=== PATIENT | male | born 1950 | race Hispanic/Latino ===

== ENCOUNTER → 2017-12-07 | Outpatient (CLI) | payer OTHER ==
[~2017-12-07] MED LIST: PANT40TA25 PO; PROP10TA10 PO
== END | disposition home or self-care (01) ==
LOC: RAH 07:40
PROVIDERS: ATTEND Internal Medicine Gastroenterology
DX: K74.60 Unspecified cirrhosis of liver (principal)
CPT/HCPCS: 76700

== ENCOUNTER → 2018-04-29 | Outpatient (CLI) | payer OTHER | END | disposition home or self-care (01) | LOC: RAH 08:03 | PROVIDERS: ATTEND Internal Medicine Gastroenterology | DX: K80.20 Calculus of gallbladder without cholecystitis without obstruction (principal); K74.60 Unspecified cirrhosis of liver | CPT/HCPCS: 76700 ==

== ENCOUNTER → 2018-09-06 | Outpatient (CLI) | payer OTHER | END | disposition home or self-care (01) | LOC: RAH 09:05 | PROVIDERS: ATTEND Internal Medicine Gastroenterology | DX: K76.9 Liver disease, unspecified (principal); R16.1 Splenomegaly, not elsewhere classified; K74.60 Unspecified cirrhosis of liver | CPT/HCPCS: 76700 ==

== ENCOUNTER 2018-11-08 06:50 | Day surgery (SDC) | payer OTHER ==
[~2018-11-08] VITALS: Ht 170.2 cm; Wt 90.1 kg
[2018-11-08 07:13] VITALS: BP 164/71
[2018-11-08] MEDS ORDERED: SODIUM CHLORIDE 0.9% 1000ML 1,000 ML IV ONE (07:18)
[2018-11-08 07:29] LABS: BASOPHILS % (AUTO) 2.1 % (0.0-5.0); EOSINOPHILS % (AUTO) 5.4 % (0.0-8.0); HEMATOCRIT 40.2 % (42-54); LYMPHOCYTES % (AUTO) 22.9 % (21.0-51.0); MEAN CORPUSCULAR HEMOGLOBIN 30.9 pg (27.0-33.0); MEAN CORPUSCULAR HGB CONC 34.3 g/dL (32.0-36.0); MEAN CORPUSCULAR VOLUME 89.9 fL (79-99); MONOCYTES % (AUTO) 9.7 % (3.0-13.0); NEUTROPHILS % (AUTO) 59.9 % (40.0-77.0); PLATELET COUNT (AUTO) 52 K/uL (130-400); RED BLOOD CELL COUNT(AUTO) 4.47 MIL/uL (4.50-6.20); WHITE BLOOD COUNT (AUTO) 4.6 K/uL (4.8-10.8)
[2018-11-08 07:41] LABS: CREATININE 0.8 mg/dL (0.5-1.5)
[2018-11-08 07:44] LABS: INR 1.11 (0.85-1.15); PARTIAL THROMBOPLASTIN TIME 29.6 SEC (26.3-35.5); PROTHROMBIN TIME 11.6 SEC (9.6-11.6)
[2018-11-08 07:47] LABS: ALBUMIN 3.6 g/dL (3.5-5.0); BILIRUBIN,TOTAL 1.8 mg/dL (0.2-1.0); TOTAL PROTEIN, SERUM 7.1 g/dL (6.0-8.3)
--- NOTE | 2018-11-08 10:13 | NUR ---
PROCEDURE PT TAKEN TO IR FOR SCHEDULED LIVER BIOPSY
--- NOTE | 2018-11-08 10:45 | NUR ---
PROCEDURE PATIENT SCHEDULED FOR LIVER BIOPSY. PATIENT IS A MOSQUE WITH A PLATELET COUNT 52. ABNORMAL LAB REPORTED TO TO DR Agus DE LA TORRE. PATIENT WAS BROUGHT TO DEPARTMENT AND SCANNED BY U/S WITH DR Agus DE LA TORRE PRESENT. DR DE LA TORRE EXPLAINED TO RISKS OF BLEEDING WIHT A PLATELET COUNT OF 52. DR Agus DE LA TORRE GAVE THE PATIENT THE OPTION TO GO AHEAD WITH THE BIOPSY WITH A HIGH RISK OF BLEEDING OR REPEAT MRI IN TWO MONTHS AND SEE IF THE LESION GROWS. THE PATIENT STATED HE WILL WAIT UNTIL AFTER THE MRI IS PERFORMED AND BASE THE BIOPSY ON THE NEW REPORT. PATIENT TRANSPORTED TO [facility] PATIENTAND REPORT GIVEN TO Savanah EARL RN
--- NOTE | 2018-11-08 11:00 | NUR ---
POST DR. JAQUEZ SPOKE TO PATIENT ABOUT HIGH RISK PROCEDURE DUE TO HIS LOW PLT LEVEL , PATIENT JEHOVA WITNESS. PATIENT DECIDED TO CANCEL PROCEDURE . PATIENT RETURN FROM IR .
--- NOTE | 2018-11-08 11:10 | NUR ---
DC PT DISCHARGE HOME WITH SPOUSE, NO DISTRESS NOTED.
== END 2018-11-08 11:10 | disposition home or self-care (01) ==
LOC: DAH 06:50 → EDSTATUS 08:00 → DAH 11:10
PROVIDERS: ATTEND Internal Medicine Gastroenterology
DX: R93.2 Abnormal findings on diagnostic imaging of liver and biliary tract (principal); Z53.8 Procedure and treatment not carried out for other reasons; K74.60 Unspecified cirrhosis of liver; E78.5 Hyperlipidemia, unspecified; I10 Essential (primary) hypertension; E11.9 Type 2 diabetes mellitus without complications; K21.9 Gastro-esophageal reflux disease without esophagitis; Z79.899 Other long term (current) drug therapy; Z86.010 Personal history of colon polyps; Z79.84 Long term (current) use of oral hypoglycemic drugs; Z98.890 Other specified postprocedural states
CPT/HCPCS: 36415; 76705; 80053; 82948; 85025; 85610; 85730; J7030

== ENCOUNTER → 2019-03-29 | Outpatient (CLI) | payer OTHER | END | disposition home or self-care (01) | LOC: RAH 09:23 | PROVIDERS: ATTEND Internal Medicine Medical Oncology | DX: K76.9 Liver disease, unspecified (principal); D69.6 Thrombocytopenia, unspecified | CPT/HCPCS: 76705 ==

== ENCOUNTER → 2021-07-25 | Outpatient (CLI) | payer OTHER ==
[~2021-07-25] MED LIST changes: -PANT40TA25 PO; +PANT40TA54 PO
== END | disposition home or self-care (01) ==
LOC: RAH 08:00
PROVIDERS: ATTEND Internal Medicine Gastroenterology
DX: K70.30 Alcoholic cirrhosis of liver without ascites (principal); K76.89 Other specified diseases of liver; N20.0 Calculus of kidney; R93.2 Abnormal findings on diagnostic imaging of liver and biliary tract; R16.1 Splenomegaly, not elsewhere classified
CPT/HCPCS: 76700; 93975

== ENCOUNTER → 2021-12-03 | Outpatient (CLI) | payer OTHER ==
[~2021-12-03] MED LIST changes: +IOHEXOL 350 MG/ML 100ML INFUS..BTL IV ONE
== END | disposition home or self-care (01) ==
LOC: RAH 08:07
PROVIDERS: ATTEND Internal Medicine Gastroenterology
DX: K57.90 Diverticulosis of intestine, part unspecified, without perforation or abscess without bleeding (principal); K70.30 Alcoholic cirrhosis of liver without ascites; R77.2 Abnormality of alphafetoprotein; M47.815 Spondylosis without myelopathy or radiculopathy, thoracolumbar region
CPT/HCPCS: 74170; Q9967

== ENCOUNTER → 2023-03-19 | Outpatient (CLI) | payer OTHER ==
[~2023-03-19] MED LIST changes: +GADOTERATE MEGLUMINE 10 MMOL/20 ML VIAL IV ONE; -IOHEXOL 350 MG/ML 100ML INFUS..BTL IV ONE
== END | disposition home or self-care (01) ==
LOC: RAH 07:30
PROVIDERS: ATTEND Internal Medicine Gastroenterology
DX: R16.1 Splenomegaly, not elsewhere classified (principal); R18.8 Other ascites; K70.30 Alcoholic cirrhosis of liver without ascites; R77.2 Abnormality of alphafetoprotein; R74.8 Abnormal levels of other serum enzymes
CPT/HCPCS: 74183; A9575